=== PATIENT | female | born 2000 | race Caucasian/White ===

== ENCOUNTER 2019-03-29 00:06 | Outpatient (CLI) | payer BC ==
[~2019-03-29] VITALS: Ht 170.2 cm; Wt 87.0 kg
[2019-03-29 00:25] VITALS: BP 120/70
[2019-03-29] MEDS ORDERED: MULTTAB20 PO (00:26)
[2019-03-29] MEDS ORDERED: ACETAMINOPHEN 500 MG TAB PO ONE (01:30)
[2019-03-29] MEDS ORDERED: oxyCODONE 5MG TAB PO ONE (02:00)
[2019-03-29 02:10] VITALS: BP 110/57
[2019-03-29 02:19] LABS: AMPHETAMINES LEVEL URINE NEGATIVE (NEGATIVE); BARBITURATES URINE NEGATIVE (NEGATIVE); BENZODIAZEPINES URINE NEGATIVE (NEGATIVE); CANNABINOIDS URINE NEGATIVE (NEGATIVE); COCAINE METABOLITE URINE NEGATIVE (NEGATIVE); METHADONE URINE NEGATIVE (NEGATIVE); OPIATES URINE NEGATIVE (NEGATIVE); PHENCYCLIDINE URINE NEGATIVE (NEGATIVE)
[2019-03-29] MEDS ORDERED: oxyCODONE 5MG TAB As Ordered ONE (02:20)
== END 2019-03-29 03:00 | disposition home or self-care (01) ==
LOC: M LDO 00:06
PROVIDERS: ATTEND Specialist
DX: O26.893 Other specified pregnancy related conditions, third trimester (principal); R51 Headache; M25.571 Pain in right ankle and joints of right foot; R10.30 Lower abdominal pain, unspecified; Z3A.31 31 weeks gestation of pregnancy
CPT/HCPCS: 59025; 80307; G0378; G0463